=== PATIENT | female | born 1955 | race Caucasian/White ===

== ENCOUNTER 2023-01-07 16:17 | Inpatient (IN) | payer MEDICARE, MEDICAID, SELFPAY ==
[2023-01-07 17:03] VITALS: BMI 19.1
--- NOTE | 2023-01-07 19:04 | PC.ADMIT ---
PATIENT ARRIVED ON UNTI VIA STRETCHER AT 1645. PATIENT SIGNED CV. ALERT AND ORIENTED X4. PATIENT PRESENTS CALM, COOPERATIVE AND ABLE TO EXPRESS NEEDS. ATTIRED IN [facility]. ADMISSION DIAGNOSIS ETOH ABUSE, PASSIVE SI WITH HX OF ATTEMPTS. PATIENT ABLE TO AMBULATE INDEPENDENTLY. PMH INCLUDES PANCREATITIS, GERD, ETOH ABUSE, R SHOULDER PAIN. CIWA COMPLETE PRIOR TO ADMISSION. PATIENT ABLE TO PARTICIPATE IN ADMISSION PROCESS. ROMAN'S SIGNED.
[2023-01-07] MEDS: hydrOXYzine HCL 25 MG TABLET PO (21:03)
[2023-01-07] MEDS: traZODone HCL 50 MG TABLET PO ×2 (21:03→21:54)
[2023-01-07] MEDS: LORazepam 0.5 MG TABLET PO (22:59)
[2023-01-08 07:30] VITALS: BP 124/63; PULSE 81; RESP 16; TEMP 36.2; O2SAT 97
[2023-01-08 08:37] LABS: Alanine Aminotransferase 12 U/L (0-31); Albumin Level 3.5 g/dL (3.5-5.0); Alkaline Phosphatase 177 U/L (39-117); Anion Gap 14 (12-20); Aspartate Amino Transferase 19 U/L (5-31); Bilirubin Total 0.4 mg/dL (0.0-1.0); Blood Urea Nitrogen 9 mg/dL (9-16); Calcium 9.1 mg/dL (8.4-10.2); Carbon Dioxide 24 mmol/L (22-29); Chloride 98 mmol/L (96-108); Cholesterol 185 mg/dL; Creatinine Clr Calc Pharmacy 39.8; Estimated Glomerular Filt Rate 54; Glucose Fasting 109 mg/dL (60-99); HDL Cholesterol 81 mg/dL; LDL Cholesterol Calculated 88 mg/dl; Potassium 3.5 mmol/L (3.3-5.1); Sodium 132 mmol/L (135-145); Total Protein 6.2 g/dL (6.5-8.0); Triglycerides 81 mg/dL
[2023-01-08] MEDS: Nicotine 21 MG PATCH.TD24 TRANSDERMA (12:19)
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
[2023-01-08] MEDS: Omeprazole 20 MG CAPSULE.DR PO (14:52)
[2023-01-08] MEDS: Venlafaxine HCl ER 75 MG CAP.ER.24H 225 MG PO (14:52)
[2023-01-08] MEDS: amLODIPine Besylate 10 MG TABLET PO (14:53)
[2023-01-08] MEDS: hydrOXYzine HCL 25 MG TABLET PO (15:37)
[2023-01-08 18:00] VITALS: BP 149/90; PULSE 80; RESP 18; TEMP 36.3; O2SAT 98
[2023-01-08] MEDS: OLANZapine 2.5 MG TABLET PO (20:26)
[2023-01-08] MEDS: traZODone HCL 100 MG TABLET PO (20:26)
[2023-01-08] MEDS: Sodium Chloride Tab 1 GM TABLET 2 GM PO (20:26)
[2023-01-08] MEDS: traZODone HCL 50 MG TABLET PO (21:48)
[2023-01-09] MEDS: Ibuprofen 800 MG TABLET PO (03:33)
[2023-01-09 10:15] VITALS: BP 122/73; PULSE 72; RESP 18; TEMP 36.2; O2SAT 99
[2023-01-09] MEDS: Omeprazole 20 MG CAPSULE.DR PO (10:19)
[2023-01-09] MEDS: Nicotine 21 MG PATCH.TD24 TRANSDERMA (10:19)
[2023-01-09] MEDS: Sodium Chloride Tab 1 GM TABLET 2 GM PO ×2 (10:19→20:58)
[2023-01-09] MEDS: Venlafaxine HCl ER 75 MG CAP.ER.24H 225 MG PO (10:20)
[2023-01-09] MEDS: amLODIPine Besylate 10 MG TABLET PO (10:27)
--- NOTE | 2023-01-09 13:36 | HO.PSYCHPN ---
Subjective Subjective Date of Service: 01/09/23 Reason For Visit: depression with SI; acute, alcohol use Subjective Notes: Conditional Voluntary Interim History: The nursing staff reported the patient had been fully compliant with treatment but she was requesting more medications, she looks drug-seeking behavior. She reports that last night Zyprexa did not sedated her at all, she was requesting for Ambien p.r.n or any other medications.. We discussed risks benefits side-effects and she agreed to change Zyprexa to Seroquel that historically has helped her for insomnia and mood lability. Mental Status Exam Mental Status Exam Patient Appearance: Well Grooomed and Appropriate Patient Orientation: Person and Situation Level of Consciousness: Awake and Appropriate Patient Behavior: Guarded and Passive Mood Description: Calm Affect Description: Constricted Patient Cognition Impaired: Yes Ability to Follow Directions: Good Speech Pattern: Clear Hallucinations: None Delusions: Not Present Thought Process: Linear Thought Content: positive for [place] and positive for Circumstantial Judgement: Fair Diagnostics Vital Signs (24Hr): Vital Signs - 24 hr 01/08/23 18:00 01/09/23 10:15 Temperature 97.4 F 97.2 F Pulse Rate 80 72 Respiratory Rate 18 18 Blood Pressure 149/90 H 122/73 Pulse Oximetry 98 99 Oxygen Delivery Method Room Air Room Air BMI result Body Mass Index 19.1 Labs 01/08/23 07:59 Labs: Laboratory Results - last 48 hr 01/08/23 07:59 Sodium 132 L Potassium 3.5 Chloride 98 Carbon Dioxide 24 Anion Gap 14 BUN 9 Creatinine 1.02 Estim Creat Clear Calc 39.8 Estimated GFR 54 Fasting Glucose 109 H Calcium 9.1 Total Bilirubin 0.4 AST 19 ALT 12 Alkaline Phosphatase 177 H Total Protein 6.2 L Albumin 3.5 Triglycerides 81 Cholesterol 185 LDL Cholesterol, Calc 88 HDL Cholesterol 81 Medications Medications Current Medications Acetaminophen (Acetaminophen 325 Mg Tablet) 650 mg PO Q6H PRN PRN Reason: Headache/Pain Mild Scale (1-3) Al Hydroxide/Mg Hydroxide (Magnesium Hydrox/Alum Hydrox 30 Ml Oral.Susp) 30 ml PO Q6H PRN PRN Reason: Heartburn/Nausea Amlodipine Besylate (Amlodipine Besylate 10 Mg Tablet) 10 mg PO DAILY JAQUELINE; Protocol Last Admin: 01/09/23 10:27 Dose: 10 mg Hydroxyzine HCl (Hydroxyzine Hcl 25 Mg Tablet) 25 mg PO Q6H PRN PRN Reason: Anxiety Last Admin: 01/08/23 15:37 Dose: 25 mg Ibuprofen (Ibuprofen 800 Mg Tablet) 800 mg PO BID PRN PRN Reason: Pain, Moderate Magnesium Hydroxide (Milk Of Magnesia 30 Ml Oral.Susp) 30 ml PO DAILY PRN PRN Reason: Constipation Nicotine (Nicotine 21 Mg Patch.Td24) 21 mg TRANSDERMA DAILY [facility] Last Admin: 01/09/23 10:19 Dose: 21 mg Olanzapine (Olanzapine 2.5 Mg Tablet) 2.5 mg PO BEDTIME [facility] Last Admin: 01/08/23 20:26 Dose: 2.5 mg Omeprazole (Omeprazole 20 Mg Capsule.Dr) 20 mg PO DAILY [facility] Last Admin: 01/09/23 10:19 Dose: 20 mg Sodium Chloride (Sodium Chloride Tab 1 Gm Tablet) 2 gm PO BID [facility] Last Admin: 01/09/23 10:19 Dose: 2 gm Trazodone HCl (Trazodone Hcl 50 Mg Tablet) 50 mg PO BEDTIME MRX1 PRN PRN Reason: Insomnia Last Admin: 01/08/23 21:48 Dose: 50 mg Trazodone HCl (Trazodone Hcl 100 Mg Tablet) 100 mg PO BEDTIME [facility] Last Admin: 01/08/23 20:26 Dose: 100 mg Venlafaxine HCl (Venlafaxine Hcl Er 75 Mg Cap.Er.24h) 225 mg PO DAILY [facility] Last Admin: 01/09/23 10:20 Dose: 225 mg Allergies Allergies Allergy/AdvReac Type Severity Reaction Status Date / Time No Known Allergies Allergy Verified 01/07/23 16:53 Assessment & Plan Assessment & Plan (1) Alcohol abuse: Status: Acute Code(s): F10.10 - Alcohol abuse, uncomplicated (2) Mood disorder: Status: Acute Code(s): F39 - Unspecified mood [affective] disorder (3) Borderline personality disorder: Status: Acute Code(s): F60.3 - Borderline personality disorder Plan The patient is a middle-aged female with a long history of mood lability, depression, alcohol use disorder and chronic and stable interpersonal relations. The patient was brought from another hospital after she was medically treated for alcohol withdrawal symptoms and exacerbation of depression with suicidal ideation. Plan 1. Gather collateral information. 2. Continue with regular antidepressants. 3. Since the patient reports hypomania times will start Zyprexa 2.5 mg p.o. q.h.s. to target insomnia and mood lability. We stopped the next day. 4. I offer naltrexone and she will think about it. 5. Referral to occupational therapist for cognitive testing. 6. Reassessment with r results. 7. Start Seroquel 100 mg po qhs as a mood stabilizer. Reason for contiued inpatient stay Substantial Risk for: inability to function, rapid decompensation and med/psych decompensation Time Spent With Patient Time: Total time managing care of this patient today __20__ minutes.
[2023-01-09 19:20] VITALS: BP 121/67; PULSE 72; RESP 18; TEMP 36.6; O2SAT 99
[2023-01-09] MEDS: traZODone HCL 100 MG TABLET PO (20:57)
[2023-01-09] MEDS: QUEtiapine Fumarate 100 MG TABLET PO (20:57)
[2023-01-10 09:45] VITALS: BP 113/63; PULSE 80; RESP 16; TEMP 36.6; O2SAT 100
[2023-01-10] MEDS: Venlafaxine HCl ER 75 MG CAP.ER.24H 225 MG PO (10:02)
[2023-01-10] MEDS: Sodium Chloride Tab 1 GM TABLET 2 GM PO ×2 (10:02→20:37)
[2023-01-10] MEDS: Omeprazole 20 MG CAPSULE.DR PO (10:03)
[2023-01-10] MEDS: Nicotine 21 MG PATCH.TD24 TRANSDERMA (10:03)
[2023-01-10] MEDS: amLODIPine Besylate 10 MG TABLET PO (10:03)
[2023-01-10] MEDS: Ibuprofen 800 MG TABLET PO (10:10)
[2023-01-10 13:21] LABS: COVID-19 Test Negative (Negative); IDNOW Serial# 16C4AD1C
--- NOTE | 2023-01-10 14:18 | P.PNPSI_ITS ---
Subjective Subjective Date of Service: 01/10/23 Reason For Visit: depression with SI; acute, alcohol use Subjective Notes: Conditional Voluntary Interim History: The nursing staff reported the patient slept well last night with Seroquel. His vital signs have been okay. She has been med compliant but she has requested an being. The social sciences research scientist reported that she has refused any 12 step program. The occupational therapist reported that she has coping skills. On interview the patient reports mild improvement of her mood without recent change of medications. I offered Naltrexone and she is going to think about Mental Status Exam Mental Status Exam Patient Appearance: Appropriate Patient Orientation: Person and Situation Level of Consciousness: Awake and Appropriate Patient Behavior: Appropriate Mood Description: Constricted Affect Description: Calm Patient Cognition Impaired: Yes Ability to Follow Directions: Good Speech Pattern: Clear Hallucinations: None Delusions: Not Present Thought Process: Linear Thought Content: positive for Circumstantial Judgement: Fair Diagnostics Vital Signs (24Hr): Vital Signs - 24 hr 01/09/23 19:20 01/10/23 09:45 Temperature 98 F 97.8 F Pulse Rate 72 80 Respiratory Rate 18 16 Blood Pressure 121/67 113/63 Pulse Oximetry 99 100 Oxygen Delivery Method Room Air Room Air BMI result Body Mass Index 19.1 Labs 01/08/23 07:59 Labs: Laboratory Results - last 48 hr 01/10/23 13:00 COVID-19 (SAÚL) Negative COVID-19 Clin Com See Note Medications Medications Current Medications Acetaminophen (Acetaminophen 325 Mg Tablet) 650 mg PO Q6H PRN PRN Reason: Headache/Pain Mild Scale (1-3) Al Hydroxide/Mg Hydroxide (Magnesium Hydrox/Alum Hydrox 30 Ml Oral.Susp) 30 ml PO Q6H PRN PRN Reason: Heartburn/Nausea Amlodipine Besylate (Amlodipine Besylate 10 Mg Tablet) 10 mg PO DAILY [facility]; Protocol Last Admin: 01/10/23 10:03 Dose: 10 mg Hydroxyzine HCl (Hydroxyzine Hcl 25 Mg Tablet) 25 mg PO Q6H PRN PRN Reason: Anxiety Last Admin: 01/08/23 15:37 Dose: 25 mg Ibuprofen (Ibuprofen 800 Mg Tablet) 800 mg PO BID PRN PRN Reason: Pain, Moderate Last Admin: 01/10/23 10:10 Dose: 800 mg Magnesium Hydroxide (Milk Of Magnesia 30 Ml Oral.Susp) 30 ml PO DAILY PRN PRN Reason: Constipation Nicotine (Nicotine 21 Mg Patch.Td24) 21 mg TRANSDERMA DAILY [facility] Last Admin: 01/10/23 10:03 Dose: 21 mg Omeprazole (Omeprazole 20 Mg Capsule.Dr) 20 mg PO DAILY [facility] Last Admin: 01/10/23 10:03 Dose: 20 mg Quetiapine Fumarate (Quetiapine Fumarate 100 Mg Tablet) 100 mg PO BEDTIME [facility] Last Admin: 01/09/23 20:57 Dose: 100 mg Sodium Chloride (Sodium Chloride Tab 1 Gm Tablet) 2 gm PO BID [facility] Last Admin: 01/10/23 10:02 Dose: 2 gm Trazodone HCl (Trazodone Hcl 50 Mg Tablet) 50 mg PO BEDTIME MRX1 PRN PRN Reason: Insomnia Last Admin: 01/08/23 21:48 Dose: 50 mg Trazodone HCl (Trazodone Hcl 100 Mg Tablet) 100 mg PO BEDTIME [facility] Last Admin: 01/09/23 20:57 Dose: 100 mg Venlafaxine HCl (Venlafaxine Hcl Er 75 Mg Cap.Er.24h) 225 mg PO DAILY [facility] Last Admin: 01/10/23 10:02 Dose: 225 mg Allergies Allergies Allergy/AdvReac Type Severity Reaction Status Date / Time No Known Allergies Allergy Verified 01/07/23 16:53 Assessment & Plan Assessment & Plan (1) Alcohol abuse: Status: Acute Code(s): F10.10 - Alcohol abuse, uncomplicated (2) Mood disorder: Status: Acute Code(s): F39 - Unspecified mood [affective] disorder (3) Borderline personality disorder: Status: Acute Code(s): F60.3 - Borderline personality disorder Plan The patient is a middle-aged female with a long history of mood lability, depression, alcohol use disorder and chronic and stable interpersonal relations. The patient was brought from another hospital after she was medically treated for alcohol withdrawal symptoms and exacerbation of depression with suicidal ideation. Plan 1. Gather collateral information. 2. Continue with regular antidepressants. 3. Since the patient reports hypomania times will start Zyprexa 2.5 mg p.o. q.h.s. to target insomnia and mood lability. We stopped the next day. 4. I offer naltrexone and she will think about it. 5. Referral to occupational therapist for cognitive testing. 6. Reassessment with r results. 7. Start Seroquel 100 mg po qhs as a mood stabilizer on January 09. Reason for contiued inpatient stay Substantial Risk for: inability to function, rapid decompensation and med/psych decompensation Time Spent With Patient Time: Total time managing care of this patient today ___20_ minutes.
[2023-01-10 18:00] VITALS: BP 113/70; PULSE 97; RESP 16; TEMP 36.3; O2SAT 97
[2023-01-10] MEDS: QUEtiapine Fumarate 100 MG TABLET PO (20:37)
[2023-01-10] MEDS: traZODone HCL 100 MG TABLET PO (20:38)
[2023-01-11] MEDS: Ibuprofen 800 MG TABLET PO ×2 (01:08→20:04)
[2023-01-11 06:00] VITALS: BP 124/69; PULSE 72; RESP 16; TEMP 36.6; O2SAT 100
[2023-01-11] MEDS: Omeprazole 20 MG CAPSULE.DR PO (09:43)
[2023-01-11] MEDS: Sodium Chloride Tab 1 GM TABLET 2 GM PO ×2 (09:43→19:56)
[2023-01-11] MEDS: amLODIPine Besylate 10 MG TABLET PO (09:43)
[2023-01-11] MEDS: Venlafaxine HCl ER 75 MG CAP.ER.24H 225 MG PO (09:43)
[2023-01-11] MEDS: Nicotine 21 MG PATCH.TD24 TRANSDERMA (09:50)
--- NOTE | 2023-01-11 11:49 | HO.PSYCHPN ---
Subjective Subjective Date of Service: 01/11/23 Reason For Visit: depression with SI; acute, alcohol use Subjective Notes: Conditional Voluntary Interim History: Patient was seen and discussed in rounds today. Records and plans were reviewed. She has been doing better. No behavioral issues. No safety concerns. Eating and sleeping adequately. No complaints or side effects. No changes were made today Review of Systems Review of Systems Yes all other systems are reviewed and are negative Diagnostics Vital Signs (24Hr): Vital Signs - 24 hr 01/10/23 18:00 Temperature 97.3 F Pulse Rate 97 Respiratory Rate 16 Blood Pressure 113/70 Pulse Oximetry 97 Oxygen Delivery Method Room Air BMI result Body Mass Index 19.1 Labs 01/08/23 07:59 Labs: Laboratory Results - last 48 hr 01/10/23 13:00 COVID-19 ([facility]ÚL) Negative COVID-19 Clin Com See Note Medications Medications Current Medications Acetaminophen (Acetaminophen 325 Mg Tablet) 650 mg PO Q6H PRN PRN Reason: Headache/Pain Mild Scale (1-3) Al Hydroxide/Mg Hydroxide (Magnesium Hydrox/Alum Hydrox 30 Ml Oral.Susp) 30 ml PO Q6H PRN PRN Reason: Heartburn/Nausea Amlodipine Besylate (Amlodipine Besylate 10 Mg Tablet) 10 mg PO DAILY [facility]; Protocol Last Admin: 01/11/23 09:43 Dose: 10 mg Hydroxyzine HCl (Hydroxyzine Hcl 25 Mg Tablet) 25 mg PO Q6H PRN PRN Reason: Anxiety Last Admin: 01/08/23 15:37 Dose: 25 mg Ibuprofen (Ibuprofen 800 Mg Tablet) 800 mg PO BID PRN PRN Reason: Pain, Moderate Last Admin: 01/11/23 01:08 Dose: 800 mg Magnesium Hydroxide (Milk Of Magnesia 30 Ml Oral.Susp) 30 ml PO DAILY PRN PRN Reason: Constipation Nicotine (Nicotine 21 Mg Patch.Td24) 21 mg TRANSDERMA DAILY [facility] Last Admin: 01/11/23 09:50 Dose: 21 mg Omeprazole (Omeprazole 20 Mg Capsule.Dr) 20 mg PO DAILY [facility] Last Admin: 01/11/23 09:43 Dose: 20 mg Quetiapine Fumarate (Quetiapine Fumarate 100 Mg Tablet) 100 mg PO BEDTIME [facility] Last Admin: 01/10/23 20:37 Dose: 100 mg Sodium Chloride (Sodium Chloride Tab 1 Gm Tablet) 2 gm PO BID [facility] Last Admin: 01/11/23 09:43 Dose: 2 gm Trazodone HCl (Trazodone Hcl 50 Mg Tablet) 50 mg PO BEDTIME MRX1 PRN PRN Reason: Insomnia Last Admin: 01/08/23 21:48 Dose: 50 mg Trazodone HCl (Trazodone Hcl 100 Mg Tablet) 100 mg PO BEDTIME [facility] Last Admin: 01/10/23 20:38 Dose: 100 mg Venlafaxine HCl (Venlafaxine Hcl Er 75 Mg Cap.Er.24h) 225 mg PO DAILY [facility] Last Admin: 01/11/23 09:43 Dose: 225 mg Allergies Allergies Allergy/AdvReac Type Severity Reaction Status Date / Time No Known Allergies Allergy Verified 01/07/23 16:53 Assessment & Plan Assessment & Plan (1) Alcohol abuse: Status: Acute Code(s): F10.10 - Alcohol abuse, uncomplicated (2) Mood disorder: Status: Acute Code(s): F39 - Unspecified mood [affective] disorder (3) Borderline personality disorder: Status: Acute Code(s): F60.3 - Borderline personality disorder Plan The patient is a middle-aged female with a long history of mood lability, depression, alcohol use disorder and chronic and stable interpersonal relations. The patient was brought from another hospital after she was medically treated for alcohol withdrawal symptoms and exacerbation of depression with suicidal ideation. Plan 1. Gather collateral information. 2. Continue with regular antidepressants. 3. Since the patient reports hypomania times will start Zyprexa 2.5 mg p.o. q.h.s. to target insomnia and mood lability. We stopped the next day. 4. I offer naltrexone and she will think about it. 5. Referral to occupational therapist for cognitive testing. 6. Reassessment with r results. 7. Start Seroquel 100 mg po qhs as a mood stabilizer on January 09. 01/11: Continue current regimen and plans Reason for contiued inpatient stay Substantial Risk for: inability to function and med/psych decompensation Time Spent With Patient Time: Total time managing care of this patient today ____ minutes.
[2023-01-11 19:55] VITALS: BP 137/67; PULSE 82; TEMP 36.4; O2SAT 98
[2023-01-11] MEDS: QUEtiapine Fumarate 100 MG TABLET PO (19:56)
[2023-01-11] MEDS: traZODone HCL 100 MG TABLET PO (19:56)
[2023-01-12 06:00] VITALS: BP 120/58; PULSE 68; RESP 18; TEMP 35.9; O2SAT 99
[2023-01-12] MEDS: Omeprazole 20 MG CAPSULE.DR PO (09:11)
[2023-01-12] MEDS: Venlafaxine HCl ER 75 MG CAP.ER.24H 225 MG PO (09:11)
[2023-01-12] MEDS: Sodium Chloride Tab 1 GM TABLET 2 GM PO ×2 (09:11→20:19)
[2023-01-12] MEDS: amLODIPine Besylate 10 MG TABLET PO (09:11)
[2023-01-12] MEDS: Nicotine 21 MG PATCH.TD24 TRANSDERMA (09:12)
--- NOTE | 2023-01-12 11:15 | P.PNPSI_ITS ---
Subjective Subjective Date of Service: 01/12/23 Reason For Visit: depression with SI; acute, alcohol use Subjective Notes: Conditional Voluntary Interim History: Patient was seen and discussed in rounds today. Records and plans were reviewed. She has been stable and is doing well. No complaints other than a slight shoulder pain. Slept 6 hours. She is pleasant and cooperative and compliant. No complaints or side effects. No changes were made today Review of Systems Review of Systems Yes all other systems are reviewed and are negative Mental Status Exam Mental Status Exam Patient Appearance: Appropriate Patient Orientation: Person and Situation Level of Consciousness: Awake and Appropriate Patient Behavior: Appropriate Mood Description: Constricted Affect Description: Calm Patient Cognition Impaired: Yes Ability to Follow Directions: Good Speech Pattern: Clear Hallucinations: None Delusions: Not Present Thought Process: Linear Thought Content: positive for Circumstantial Judgement: Fair Diagnostics Vital Signs (24Hr): Vital Signs - 24 hr 01/11/23 19:55 01/12/23 06:00 Temperature 97.5 F 96.6 F L Pulse Rate 82 68 Respiratory Rate 18 Blood Pressure 137/67 120/58 L Pulse Oximetry 98 99 Oxygen Delivery Method Room Air Room Air BMI result Body Mass Index 19.1 Labs 01/08/23 07:59 Labs: Laboratory Results - last 48 hr 01/10/23 13:00 COVID-19 ([facility]ÚL) Negative COVID-19 Clin Com See Note Medications Medications Current Medications Acetaminophen (Acetaminophen 325 Mg Tablet) 650 mg PO Q6H PRN PRN Reason: Headache/Pain Mild Scale (1-3) Al Hydroxide/Mg Hydroxide (Magnesium Hydrox/Alum Hydrox 30 Ml Oral.Susp) 30 ml PO Q6H PRN PRN Reason: Heartburn/Nausea Amlodipine Besylate (Amlodipine Besylate 10 Mg Tablet) 10 mg PO DAILY [facility]; Protocol Last Admin: 01/12/23 09:11 Dose: 10 mg Hydroxyzine HCl (Hydroxyzine Hcl 25 Mg Tablet) 25 mg PO Q6H PRN PRN Reason: Anxiety Last Admin: 01/08/23 15:37 Dose: 25 mg Ibuprofen (Ibuprofen 800 Mg Tablet) 800 mg PO BID PRN PRN Reason: Pain, Moderate Last Admin: 01/11/23 20:04 Dose: 800 mg Magnesium Hydroxide (Milk Of Magnesia 30 Ml Oral.Susp) 30 ml PO DAILY PRN PRN Reason: Constipation Nicotine (Nicotine 21 Mg Patch.Td24) 21 mg TRANSDERMA DAILY [facility] Last Admin: 01/12/23 09:12 Dose: 21 mg Omeprazole (Omeprazole 20 Mg Capsule.Dr) 20 mg PO DAILY [facility] Last Admin: 01/12/23 09:11 Dose: 20 mg Quetiapine Fumarate (Quetiapine Fumarate 100 Mg Tablet) 100 mg PO BEDTIME [facility] Last Admin: 01/11/23 19:56 Dose: 100 mg Sodium Chloride (Sodium Chloride Tab 1 Gm Tablet) 2 gm PO BID [facility] Last Admin: 01/12/23 09:11 Dose: 2 gm Trazodone HCl (Trazodone Hcl 50 Mg Tablet) 50 mg PO BEDTIME MRX1 PRN PRN Reason: Insomnia Last Admin: 01/08/23 21:48 Dose: 50 mg Trazodone HCl (Trazodone Hcl 100 Mg Tablet) 100 mg PO BEDTIME [facility] Last Admin: 01/11/23 19:56 Dose: 100 mg Venlafaxine HCl (Venlafaxine Hcl Er 75 Mg Cap.Er.24h) 225 mg PO DAILY [facility] Last Admin: 01/12/23 09:11 Dose: 225 mg Allergies Allergies Allergy/AdvReac Type Severity Reaction Status Date / Time No Known Allergies Allergy Verified 01/07/23 16:53 Assessment & Plan Assessment & Plan (1) Alcohol abuse: Status: Acute Code(s): F10.10 - Alcohol abuse, uncomplicated (2) Mood disorder: Status: Acute Code(s): F39 - Unspecified mood [affective] disorder (3) Borderline personality disorder: Status: Acute Code(s): F60.3 - Borderline personality disorder Plan The patient is a middle-aged female with a long history of mood lability, depression, alcohol use disorder and chronic and stable interpersonal relations. The patient was brought from another hospital after she was medically treated for alcohol withdrawal symptoms and exacerbation of depression with suicidal ideation. Plan 1. Gather collateral information. 2. Continue with regular antidepressants. 3. Since the patient reports hypomania times will start Zyprexa 2.5 mg p.o. q.h.s. to target insomnia and mood lability. We stopped the next day. 4. I offer naltrexone and she will think about it. 5. Referral to occupational therapist for cognitive testing. 6. Reassessment with r results. 7. Start Seroquel 100 mg po qhs as a mood stabilizer on January 09. 01/11: Continue current regimen and plans 01/12: Continue plans and regimen Reason for contiued inpatient stay Substantial Risk for: med/psych decompensation Time Spent With Patient Time: Total time managing care of this patient today ____ minutes.
[2023-01-12 18:00] VITALS: BP 117/72; PULSE 79; RESP 18; TEMP 36.6; O2SAT 99
[2023-01-12] MEDS: QUEtiapine Fumarate 100 MG TABLET PO (20:19)
[2023-01-12] MEDS: traZODone HCL 100 MG TABLET PO (20:19)
[2023-01-12] MEDS: Ibuprofen 800 MG TABLET PO (20:20)
[2023-01-13 08:20] VITALS: BP 101/64; PULSE 75; RESP 16; TEMP 36.9; O2SAT 98
[2023-01-13] MEDS: Omeprazole 20 MG CAPSULE.DR PO (08:21)
[2023-01-13] MEDS: amLODIPine Besylate 10 MG TABLET PO (08:22)
[2023-01-13] MEDS: Venlafaxine HCl ER 75 MG CAP.ER.24H 225 MG PO (08:22)
[2023-01-13] MEDS: Sodium Chloride Tab 1 GM TABLET 2 GM PO ×2 (08:22→20:03)
[2023-01-13] MEDS: Nicotine 21 MG PATCH.TD24 TRANSDERMA (08:23)
--- NOTE | 2023-01-13 10:13 | P.PNPSI_ITS ---
Subjective Subjective Date of Service: 01/13/23 Reason For Visit: depression with SI; acute, alcohol use Subjective Notes: Conditional Voluntary Interim History: Patient was seen and discussed in rounds today. Records and plans and labs were reviewed. She has been stable and is doing well. She is visible. Eating and sleeping adequately. She is social and interactive. She does have some left shoulder pain. No other complaints or side effects. No changes were made today Review of Systems Review of Systems Left shoulder pain Yes all other systems are reviewed and are negative Mental Status Exam Mental Status Exam Patient Appearance: Appropriate Patient Orientation: Person and Situation Level of Consciousness: Awake and Appropriate Patient Behavior: Appropriate Mood Description: Constricted Affect Description: Calm Patient Cognition Impaired: Yes Ability to Follow Directions: Good Speech Pattern: Clear Hallucinations: None Delusions: Not Present Thought Process: Linear Thought Content: positive for Circumstantial Judgement: Fair Diagnostics Vital Signs (24Hr): Vital Signs - 24 hr 01/12/23 18:00 01/13/23 08:20 Temperature 97.8 F 98.5 F Pulse Rate 79 75 Respiratory Rate 18 16 Blood Pressure 117/72 101/64 Pulse Oximetry 99 98 Oxygen Delivery Method Room Air Room Air BMI result Body Mass Index 19.1 Labs 01/08/23 07:59 Medications Medications Current Medications Acetaminophen (Acetaminophen 325 Mg Tablet) 650 mg PO Q6H PRN PRN Reason: Headache/Pain Mild Scale (1-3) Al Hydroxide/Mg Hydroxide (Magnesium Hydrox/Alum Hydrox 30 Ml Oral.Susp) 30 ml PO Q6H PRN PRN Reason: Heartburn/Nausea Amlodipine Besylate (Amlodipine Besylate 10 Mg Tablet) 10 mg PO DAILY [facility]; Protocol Last Admin: 01/13/23 08:22 Dose: 10 mg Hydroxyzine HCl (Hydroxyzine Hcl 25 Mg Tablet) 25 mg PO Q6H PRN PRN Reason: Anxiety Last Admin: 01/08/23 15:37 Dose: 25 mg Ibuprofen (Ibuprofen 800 Mg Tablet) 800 mg PO BID PRN PRN Reason: Pain, Moderate Last Admin: 01/12/23 20:20 Dose: 800 mg Magnesium Hydroxide (Milk Of Magnesia 30 Ml Oral.Susp) 30 ml PO DAILY PRN PRN Reason: Constipation Nicotine (Nicotine 21 Mg Patch.Td24) 21 mg TRANSDERMA DAILY [facility] Last Admin: 01/13/23 08:23 Dose: 21 mg Omeprazole (Omeprazole 20 Mg Capsule.Dr) 20 mg PO DAILY [facility] Last Admin: 01/13/23 08:21 Dose: 20 mg Quetiapine Fumarate (Quetiapine Fumarate 100 Mg Tablet) 100 mg PO BEDTIME [facility] Last Admin: 01/12/23 20:19 Dose: 100 mg Sodium Chloride (Sodium Chloride Tab 1 Gm Tablet) 2 gm PO BID [facility] Last Admin: 01/13/23 08:22 Dose: 2 gm Trazodone HCl (Trazodone Hcl 50 Mg Tablet) 50 mg PO BEDTIME MRX1 PRN PRN Reason: Insomnia Last Admin: 01/08/23 21:48 Dose: 50 mg Trazodone HCl (Trazodone Hcl 100 Mg Tablet) 100 mg PO BEDTIME [facility] Last Admin: 01/12/23 20:19 Dose: 100 mg Venlafaxine HCl (Venlafaxine Hcl Er 75 Mg Cap.Er.24h) 225 mg PO DAILY [facility] Last Admin: 01/13/23 08:22 Dose: 225 mg Allergies Allergies Allergy/AdvReac Type Severity Reaction Status Date / Time No Known Allergies Allergy Verified 01/07/23 16:53 Assessment & Plan Assessment & Plan (1) Alcohol abuse: Status: Acute Code(s): F10.10 - Alcohol abuse, uncomplicated (2) Mood disorder: Status: Acute Code(s): F39 - Unspecified mood [affective] disorder (3) Borderline personality disorder: Status: Acute Code(s): F60.3 - Borderline personality disorder Plan The patient is a middle-aged female with a long history of mood labil ity, depression, alcohol use disorder and chronic and stable interpersonal relations. The patient was brought from another hospital after she was medically treated for alcohol withdrawal symptoms and exacerbation of depression with suicidal ideation. Plan 1. Gather collateral information. 2. Continue with regular antidepressants. 3. Since the patient reports hypomania times will start Zyprexa 2.5 mg p.o. q.h.s. to target insomnia and mood lability. We stopped the next day. 4. I offer naltrexone and she will think about it. 5. Referral to occupational therapist for cognitive testing. 6. Reassessment with r results. 7. Start Seroquel 100 mg po qhs as a mood stabilizer on January 09. 01/11: Continue current regimen and plans 01/12: Continue plans and regimen 01/13: Continue current plans and regimen Reason for contiued inpatient stay Substantial Risk for: med/psych decompensation Time Spent With Patient Time: Total time managing care of this patient today ____ minutes.
[2023-01-13] MEDS: QUEtiapine Fumarate 100 MG TABLET PO (20:03)
[2023-01-13] MEDS: traZODone HCL 100 MG TABLET PO (20:03)
[2023-01-13 21:03] LABS: Influenza A PCR NEGATIVE (Negative); Influenza B PCR NEGATIVE (Negative); Resp Syncy Virus RNA Qual PCR NEGATIVE (Negative); SARS COV2 PCR INHOUSE NEGATIVE (Negative)
[2023-01-13 21:24] VITALS: BP 115/69; PULSE 86; RESP 18; TEMP 36.3; O2SAT 95
--- NOTE | 2023-01-14 07:42 | PM.PSYDC ---
DS: Providers Provider Date of Service: 01/14/23 Date of admission: 01/07/23 16:17 Date of discharge: 01/14/23 Primary care physician: Unknown Physician Consults: 01/07/23 10:58 Consult to Hospitalist Routine Consulting Provider: Hospitalist Reason For Exam: Direct admssion DS: Diagnosis Discharge Diagnosis (1) Alcohol abuse: Status: Acute (2) Mood disorder: Status: Acute (3) Borderline personality disorder: Status: Acute DS: Medications Discharge Medications Home Medications: Home Medications Medication Instructions Recorded Confirmed amlodipine 10 mg tablet 10 mg PO DAILY 01/07/23 01/07/23 ibuprofen 800 mg PO DAILY PRN Pain, Moderate 01/07/23 01/07/23 pantoprazole 40 mg tablet,delayed 40 mg PO DAILY 01/07/23 01/07/23 release sodium chloride 1,000 mg soluble 2,000 mg PO BID 01/07/23 01/07/23 tablet trazodone 100 mg tablet 100 mg PO BEDTIME 01/07/23 01/07/23 venlafaxine 75 mg tablet,extended 225 mg PO DAILY 01/07/23 01/07/23 release 24 hr Mental Status Exam Mental Status Exam Patient Appearance: Well Grooomed and Appropriate Patient Orientation: Person, Place and Situation Level of Consciousness: Awake and Appropriate Patient Behavior: Cooperative and Passive Mood Description: Calm Affect Description: Constricted Patient Cognition Impaired: No Ability to Follow Directions: Good Speech Pattern: Clear Hallucinations: None Delusions: Not Present Thought Process: Goal Oriented Thought Content: positive for [place] and positive for Circumstantial Judgement: Fair Data Data Completed and Pending Completed studies during hospitalization [Text1]: 01/08/23 01/10/23 01/13/23 07:59 13:00 20:18 Sodium 132 L Potassium 3.5 Chloride 98 Carbon Dioxide 24 Anion Gap 14 BUN 9 Creatinine 1.02 Estim Creat Clear Calc 39.8 Estimated GFR 54 Fasting Glucose 109 H Calcium 9.1 Total Bilirubin 0.4 AST 19 ALT 12 Alkaline Phosphatase 177 H Total Protein 6.2 L Albumin 3.5 Triglycerides 81 Cholesterol 185 LDL Cholesterol, Calc 88 HDL Cholesterol 81 COVID-19 ([facility]ÚL) Negative COVID-19 Clin Com See Note Influenza Type A (PCR) NEGATIVE Influenza Type B (PCR) NEGATIVE RSV RNA Qual (PCR) NEGATIVE SARS-CoV-2 RNA (RT-PCR) NEGATIVE DS: Summary Hospital Course Hospital Course: The patient was transferred from another hospital after being medically treated for alcohol withdrawal symptoms the patient carries a diagnosis of mood disorder, borderline personality disorder and alcohol use disorder. Please see the HPI for further details. On admission, the patient reported exacerbation of depression with relapse on alcohol. I offer initially naltrexone but she was not interested at this moment. We also noticed that the patient had episodes of racing thoughts and irritability. I offered initially Zyprexa 2.5 p.o. q.h.s. since the patient reported poor sleep to. Eventually we change Zyprexa 2.5 mg p.o. q.h.s. to Seroquel 100 mg p.o. q.h.s. since historically worked better for her. With the medication changes the patient was able to sleep, she was pleasant cooperative and future oriented, she was able to participate in the therapeutic activities of the group and since there were no suicidal ideation and a remark improvement, discharge planning was discussed. Time spent discussing smoking cessation with patient: 3 to 10 minutes Status at Discharge Cognitive/behavioral status at discharge: At baseline Functional status at discharge: independent ambulation Overall status at discharge: patient is back to baseline Time Spent with Patient Time attestation: Total time managing care of this patient today __20__ minutes. Time spent: Less than 30 minutes Discharge Plan Discharge Anticipated Discharge Date/Time: 01/14/23 10:00 Patient Disposition: Home, Self-Care Discharge Diagnosis: Mood disorder NOS. Alcohol use disorder. Personality disorder cluster B traits. Referrals: Celsa Voss [facility] psychiatry [Other] - 01/15/23 10:40 am (Your next appointment with Celsa Voss is scheduled for 01/15/23 at 10:40am. ) Jono Franco [facility] therapy [Other] - 1 Week (Message left for therapist requesting therapy appointment. ) Dr Maurizio [facility] [Other] - 01/22/23 12:00 pm (Your next appointment with PCP is scheduled for 01/22/23 at 12pm. ) Discharge Medications: New quetiapine 100 mg Tablet 100 mg PO BEDTIME 30 Days Qty: 30 0RF Continued trazodone 100 mg Tablet 100 mg PO BEDTIME 30 Days Qty: 30 0RF amlodipine 10 mg Tablet 10 mg PO DAILY 30 Days Qty: 30 0RF pantoprazole 40 mg Tablet,Delayed Release (Dr/Ec) 40 mg PO DAILY 30 Days Qty: 30 0RF sodium chloride 1,000 mg Tablet,Soluble 2,000 mg PO BID 30 Days Qty: 120 0RF venlafaxine 75 mg Tablet Extended Release 24hr 225 mg PO DAILY 30 Days Qty: 90 0RF ibuprofen 800 mg tablet 800 mg PO DAILY PRN (Reason: Pain, Moderate) 30 Days Qty: 60 0RF Discharge Orders: Discharge Order (Routine); Ordered 01/14/23 Ordered By: Damon Barth Diet: Advance to usual diet Activity on Discharge: As tolerated Stand Alone Forms: Patient Portal Discharge page Care Plan Goals: Care plan goals achieved in this admission Health Concerns: Continue treatment with primary care physician. Plan of Treatment: Continue medication management as an outpatient. Assessment: Elderly female with a long history of alcohol use disorder, personality disorder and mood disorder admitted for suicidality in the context of a recent relapse on alcohol. The patient was initially treated for alcohol withdrawal symptoms at another hospital and transferring to this facility for psychiatric stabilization. Here we started Seroquel 100 mg p.o. q.h.s. with for improvement of her mood. I offered naltrexone but she refused at this moment. At this moment safe to be in the community.
[2023-01-14 07:45] VITALS: BP 118/62; PULSE 79; RESP 16; TEMP 36.3; O2SAT 97
[2023-01-14] MEDS: Sodium Chloride Tab 1 GM TABLET 2 GM PO (07:58)
[2023-01-14] MEDS: Venlafaxine HCl ER 75 MG CAP.ER.24H 225 MG PO (07:59)
[2023-01-14] MEDS: Omeprazole 20 MG CAPSULE.DR PO (08:00)
[2023-01-14] MEDS: amLODIPine Besylate 10 MG TABLET PO (08:00)
== END 2023-01-14 10:20 | disposition home or self-care (01) | DRG 883 ==
PROVIDERS: Social Worker; Admitting Provider Psychiatry & Neurology Psychiatry; Visit Provider Psychiatry & Neurology Psychiatry
DX: F60.3 Borderline personality disorder (principal); R45.851 Suicidal ideations; E22.2 Syndrome of inappropriate secretion of antidiuretic hormone; F39 Unspecified mood [affective] disorder; F10.10 Alcohol abuse, uncomplicated; F17.210 Nicotine dependence, cigarettes, uncomplicated; Z20.822 Contact with and (suspected) exposure to COVID-19; Z71.6 Tobacco abuse counseling; Z79.899 Other long term (current) drug therapy
CPT/HCPCS: 0241U; 36415; 80053; 80061; 87635